=== PATIENT | male | born 1985 | race Hispanic/Latino ===

== ENCOUNTER 2020-03-16 12:03 | Emergency (ER) | payer SELFPAY ==
[2020-03-16 12:05] VITALS: BP 138/80; PULSE 84; RESP 16; TEMP 36.6; O2SAT 95; BMI 36.3
--- NOTE | 2020-03-16 12:15 | RAD_ITS ---
STUDY: X-RAY CHEST REASON FOR EXAM: Male, 34 years old. SHOULDER, BACK AND CHEST PAIN. HX TRAUMA TECHNIQUE: PA and lateral views of the chest. COMPARISON: None. FINDINGS: The lungs are clear and expanded. There is no demonstrated pleural abnormality. There is mild cardiac enlargement. Normal mediastinum and qi. Normal visualized pulmonary arteries. Normal visualized aortic arch and descending thoracic aorta. Normal visualized thoracic spine. Normal visualized ribs, clavicles, and shoulders. There is no demonstrated abnormality of the visualized soft tissue structures of the upper abdomen. RAD/Chest PA and Lateral IMPRESSION: Borderline cardiomegaly. No visualized fracture. Underexpansion of the lungs no definitive focal infiltrate. Electronically Signed: Angela Etienne MD at 13:02 EST Tel , Service support ,
--- NOTE | 2020-03-16 12:15 | RAD_ITS ---
STUDY: X-RAY - LEFT SHOULDER REASON FOR EXAM: Male, 34 years old. SHOULDER AND CHEST PAIN. HX TRAUMA TECHNIQUE: 4 view(s) of the shoulder. COMPARISON: None. FINDINGS: Normal glenohumeral articulation. Normal acromioclavicular joint. Normal acromion. Normal humeral head and visualized proximal humerus. The soft tissue structures are unremarkable. Normal visualized pulmonary apex. RAD/Shoulder min 2 Views IMPRESSION: Normal x-ray examination of the shoulder. Electronically Signed: Angela Etienne MD at 13:02 EST Tel , Service support ,
--- NOTE | 2020-03-16 12:16 | ED.DCSUM_ITS ---
History of Present Illness Chief Complaint: Upper Extremity Injury Informant: Patient, Significant Other Onset: Weeks - 1 week Context: Gradual Onset Timing: Waxes and wanes Current Severity: Mild Maximum Severity: Moderate Narrative: Patient presents with injury to the left upper chest and left shoulder region 1 week ago. 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 Injury was to the left upper chest and left shoulder region. He is right-hand dominant. He denies paresthesias. He does have increased pain with movement of the left arm and states the chest wall bothers him more than the shoulder. He has not been taking anything for pain at home. Past Medical History - Allergies and Home Meds Allergies/Adverse Reactions: Allergies No Known Allergies Allergy (Verified 03/16/20 12:05) Primary Care Physician: NOT,DEFINED [Primary Care Provider] - Past Medical History: None Review of Systems General: Denies: Chills, Fever Eyes: Denies: Visual changes - bilaterally ENT: Denies: Bilateral ear pain Cardiovascular: Reports: Chest pain Respiratory: Denies: Dyspnea Gastrointestinal: Denies: Abdominal pain, Vomiting Musculoskeletal: Reports: Extremity Pain. Denies: Neck pain, Back pain Skin: Denies: Rash, Wounds Neurological: Denies: Parasthesia, Numbness Hematologic: Denies: Easy bruising, Easy bleeding Allergy: Denies: Uticaria Physical Exam Vital Signs/Narrative: Vital Signs Temp Pulse Resp BP Pulse Ox 03/16/20 12:05 97.8 F 84 16 138/80 H 95 Inital Vital Signs reviewed: Yes General: Well nourished, Well developed Head: Normocephalic Eyes: Perrl, EOMI Neck: Supple, - - No C-spine tenderness. Cardiovascular: Regular rate, Regular rhythm Respiratory: No distress, CTA bilaterally, Chest tenderness - Mild left upper chest wall tenderness. No crepitus. Abdomen: Soft, Nontender Extremities: - - Mild tenderness to the left proximal humerus. No deformity. Good range of motion of left upper extremity. Strong distal pulses and normal cap refill. Skin: Normal color Neurological: Alert, Oriented x3, Normal Strength, Normal Sensation Psychological: Normal affect Diagnostic/Tx/Re-eval Left shoulder x-ray and 2 view chest x-ray reviewed by myself with no acute abnormality noted. - Medical Decision Making Patient was given naproxen for pain. Images are reviewed with patient and family at bedside. They state that they spoke with the patient's boss and they will cover the cost, case does not need to be run through [employer]. 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 ED Disposition - Plan for ED Patient: Disposition: Home or Assisted Living Diagnosis: Chest wall contusion Instructions: ED Chest Wall Contusion Prescriptions: Naproxen [Naprosyn] 500 mg PO BID PRN PRN #20 tab PRN Reason: Pain Score 4-10 Transmission Status: Pending to [id number] Referrals: Angelito Jenkins III, MD [STAFF PHYSICIAN] - As Needed
[2020-03-16] MEDS: Naproxen 500 MG Tablet PO (12:22)
== END 2020-03-16 13:30 | disposition home or self-care (01) ==
PROVIDERS: Emergency Provider Emergency Medicine
DX: S20.219A Contusion of unspecified front wall of thorax, initial encounter (principal); W23.0XXA Caught, crushed, jammed, or pinched between moving objects, initial encounter; Y93.89 Activity, other specified; Y92.89 Other specified places as the place of occurrence of the external cause; Y99.0 Civilian activity done for income or pay
CPT/HCPCS: 71046; 73030; 99283